=== PATIENT | male | born 1995 | race African-American/Black ===

== ENCOUNTER 2019-04-29 13:39 | Outpatient (RCR) | payer SELFPAY ==
[2019-04-29 15:00] LABS: SEMEN VOLUME 7.2 ML (1.5-5.0)
== END 2019-07-28 | disposition home or self-care (01) ==
LOC: LAB 13:39 → EDSEX 13:39
PROVIDERS: ATTEND Obstetrics & Gynecology
DX: N46.9 Male infertility, unspecified (principal)
CPT/HCPCS: 89320

== ENCOUNTER → 2021-01-03 | Outpatient (CLI) | payer OTHER ==
--- NOTE | 2021-01-03 09:49 | Diagnostic Imaging Report ---
PROCEDURE: US Scrotum. TECHNIQUE: Multiple real-time grayscale images were obtained over the scrotum in various projections bilaterally. INDICATION: Varicocele and infertility. The right testicle measures 4.2 x 1.9 x 3.0 cm. The left testicle measures 3.9 x 1.9 x 2.9 cm. Both testes demonstrate homogeneous echotexture. No discrete testicular masses identified. There is blood flow to both testes. Epididymides are unremarkable bilaterally. There are small bilateral hydroceles. There are 2 small scrotal pearls in the left hemiscrotum. IMPRESSION: Unremarkable scrotal ultrasound. There is no evidence of testicular mass or vascular compromise. No varicocele is detected. There are small bilateral hydroceles. Dictated by: Dictated on workstation # [id number]
== END ==
LOC: RAD 09:00
PROVIDERS: ATTEND Urology
DX: N43.3 Hydrocele, unspecified (principal); N46.9 Male infertility, unspecified
CPT/HCPCS: 76870

== ENCOUNTER → 2021-04-01 | Outpatient (CLI) | payer SELFPAY ==
[2021-04-01 15:19] LABS: SEMEN VOLUME 2.5 ML (1.5-5.0)
== END ==
LOC: LAB 11:40
PROVIDERS: ATTEND Urology
DX: N46.9 Male infertility, unspecified (principal); I86.1 Scrotal varices
CPT/HCPCS: 89320